=== PATIENT | female | born 1945 | race Caucasian/White ===

== ENCOUNTER 2019-06-24 21:06 | Emergency (ER) | payer MEDICARE ==
[~2019-06-24] VITALS: Ht 165.1 cm; Wt 74.5 kg
[2019-06-24 22:07] LABS: HEMATOCRIT 30.8 % (37.0-47.0); HEMOGLOBIN 9.6 g/dl (12.0-16.0); IMMATURE GRANULOCYTES 0.3 % (0.0-5.0); MEAN CELL VOLUME 91.4 fL CALC (80.0-100.0); MEAN CORPUSCULAR HGB 28.5 pG CALC (26.0-32.0); MEAN CORPUSCULAR HGB CONC 31.2 g/L CALC (32.0-36.0); NEUT# 3.17 thou/uL (2.00-7.15); RED BLOOD COUNT 3.37 mill/uL (4.20-5.60); RED CELL DISTRI WIDTH 14.5 % (11.5-15.5)
[2019-06-24] MEDS ORDERED: AMIODARONE200 MG PO (22:27)
[2019-06-24] MEDS ORDERED: NORVASC PO (22:28)
[2019-06-24] MEDS ORDERED: ASPIRIN 81 LOW81 MG PO (22:29)
[2019-06-24] MEDS ORDERED: CALCIUM +D PO (22:30)
[2019-06-24] MEDS ORDERED: CLOPIDOGREL75 MG PO (22:31)
[2019-06-24] MEDS ORDERED: LEVEMIR100 UNIT/M SC (22:33)
[2019-06-24] MEDS ORDERED: LEVOTHYROXIN100 MC1 PO (22:34)
[2019-06-24] MEDS ORDERED: MELATONIN3 M1 PO (22:35)
[2019-06-24] MEDS ORDERED: METOPROLOL SUCC50 MG PO (22:36)
[2019-06-24 22:37] LABS: ALBUMIN 3.5 g/dL (3.2-5.0); ALKALINE PHOSPHATASE 67 u/l (38-126); ANION GAP 15 (6-22 (CALC)); BILIRUBIN, TOTAL 0.3 mg/dL (0.0-1.4); BUN 41 mg/dL (8-23); BUN/CREATININE RATIO 28 (12-20 (CALC)); CARBON DIOXIDE 26 mmol/l (22-30); CHLORIDE 96 mmol/l (95-108); CREATININE 1.5 mg/dL (0.5-1.0); GFR 34 ML/MIN (>=60 (CALC)); GFR FOR AFR.AMER. 41 ML/MIN (>=60 (CALC)); POTASSIUM 4.8 mmol/l (3.5-5.1); SGOT/AST 19 u/l (9-36); SODIUM 132 mmol/l (137-146); TOTAL PROTEIN 5.8 g/dL (6.3-8.2)
[2019-06-24] MEDS ORDERED: NOVOLOG FL100 UNIT/M SC (22:37)
[2019-06-24] MEDS ORDERED: OMEGA 31000 MG PO (22:38)
[2019-06-24] MEDS ORDERED: MIRALAX3350 N1 PO (22:38)
[2019-06-24] MEDS ORDERED: DIOVAN160 MG PO (22:39)
[2019-06-24 22:50] LABS: MYOGLOBIN 34 ng/mL (0 - 62)
[2019-06-24 23:36] LABS: URINE BILIRUBIN - DIPSTICK NEGATIVE (NEGATIVE); URINE BLOOD DIPSTICK NEGATIVE (NEGATIVE); URINE COLOR YELLOW; URINE GLUCOSE - DIPSTICK >=1000 mg/dL (NEGATIVE); URINE KETONE NEGATIVE (NEGATIVE); URINE LEUK ESTERASE NEGATIVE (NEGATIVE); URINE NITRITE - DIPSTICK NEGATIVE (Negative); URINE PROTEIN - DIPSTICK NEGATIVE (NEG-TRACE); URINE UROBILINOGEN - DIPSTICK 0.2 E.U./dL (0.2)
[2019-06-25 00:40] VITALS: BP 135/53
== END 2019-06-25 00:40 ==
LOC: ED 21:06
PROVIDERS: Emergency Medicine
DX: E11.65 Type 2 diabetes mellitus with hyperglycemia (principal); D64.9 Anemia, unspecified; Z79.4 Long term (current) use of insulin